=== PATIENT | male | born 1970 | race Caucasian/White ===

== ENCOUNTER 2022-08-10 00:19 | Inpatient (IN) | payer MEDICAID ==
[~2022-08-10] VITALS: Ht 182.9 cm; Wt 98.9 kg
[2022-08-10 00:31] VITALS: BP 125/80
--- NOTE | 2022-08-10 00:34 | NUR ---
PT AMBULATED TO BED 11
--- NOTE | 2022-08-10 01:12 | NUR ---
DR. HUIZAR AT BEDSIDE
[2022-08-10] MEDS ORDERED: VANCOMYCIN 1,000 MG in DEXTROSE 5% 250 ML IV ONE (02:50)
[2022-08-10] MEDS ORDERED: NACL 0.9% 1,000 ML IV SCH (02:50)
[2022-08-10] MEDS ORDERED: cefTRIAXone 1,000 MG in DEXT 5% MINI-BAG PLUS 50 ML IV ONE (02:50)
--- NOTE | 2022-08-10 02:50 | NUR ---
DR. HUIZAR DECIDES TO ADMIT. PT UPDATED ON POC WITH FULL RETURNED VERBAL UNDERSTANDING.
[2022-08-10] MEDS ORDERED: MORPHINE SULFATE 4 MG/ML SYR IVP ONE (02:55)
[2022-08-10 03:15] LABS: BASOPHILS # (AUTO) 0.1 K/uL (0.00-0.22); BASOPHILS % (AUTO) 0.8 % (0.0-2.0); EOSINOPHILS # (AUTO) 0.4 K/uL (0-0.4); EOSINOPHILS % (AUTO) 2.9 % (0.0-4.0); HEMATOCRIT 34.5 % (36-52); HEMOGLOBIN 10.9 g/dL (12.0-18.0); LYMPHOCYTES # (AUTO) 1.4 K/uL (2.0-11.5); LYMPHOCYTES % (AUTO) 10.7 % (20.5-51.1); MEAN CORPUSCULAR HEMOGLOBIN 24 pg (27-31); MEAN CORPUSCULAR HGB CONC 32 g/dL (33-37); MEAN CORPUSCULAR VOLUME 75.8 fL (80-94); MONOCYTES # (AUTO) 0.6 K/uL (0.8-1.0); MONOCYTES % (AUTO) 4.4 % (1.7-9.3); NEUTROPHILS # (AUTO) 10.6 K/uL (1.8-7.7); NEUTROPHILS % (AUTO) 81.2 % (42.2-75.2); PLATELET COUNT (AUTO) 380 K/uL (140-450); RED BLOOD CELL COUNT(AUTO) 4.55 MIL/uL (4.20-6.10); RED CELL DISTRIBUTION WIDTH 18.7 % (11.6-13.7)
[2022-08-10] MEDS ORDERED: cefTRIAXone 1,000 MG VIAL ONE (03:29)
--- NOTE | 2022-08-10 03:30 | NUR ---
PT RESTING, FOLLOWED THROUGH WITH CURRENT ORDERS. PT UPDATED ON POC WITH FULL RETURNED VERBAL UNDERSTANDING. PT IN POSITION OF COMFORT. AWAITING ADMISSION. WILL CONTINUE TO MONITOR.
[2022-08-10 03:42] LABS: ALBUMIN 1.7 g/dL (3.4-5.0); ANION GAP 17.3 (8-16); CREATININE 1.8 mg/dL (0.6-1.3); POTASSIUM 4.3 mmol/L (3.5-5.1); TOTAL BILIRUBIN 1.2 mg/dL (0.0-1.0)
[2022-08-10] MEDS ORDERED: VANCOMYCIN PER PHARMACY MC PRN ×2 (04:15→04:30)
[2022-08-10] MEDS ORDERED: VANCOMYCIN 1,000 MG VIAL ONE (04:19)
[2022-08-10] MEDS ORDERED: VANCOMYCIN 1GM/DEXT 5% PREMIX 200 ML IV SCH (04:45)
[2022-08-10] MEDS ORDERED: SLIDE SUBQ (04:49)
[2022-08-10] MEDS ORDERED: NOVR SUBQ (04:49)
[2022-08-10] MEDS ORDERED: ROSU20TA1 PO (04:49)
--- NOTE | 2022-08-10 04:49 | NUR ---
PT UNABLE TO REMEMBER ALL HOME MEDICATIONS AND DOSES.
[2022-08-10] MEDS ORDERED: ACETAMINOPHEN 325 MG TAB PO PRN (09:15)
[2022-08-10] MEDS ORDERED: NITROGLYCERIN 0.4 MG TAB SL PRN (09:15)
[2022-08-10] MEDS ORDERED: POTASSIUM CHLORIDE 10 MEQ TABER PO PRN ×2 (09:15)
[2022-08-10] MEDS ORDERED: DEXTROSE 50% 50 ML SYR IVP PRN (09:15)
[2022-08-10] MEDS ORDERED: ONDANSETRON 4 MG/2 ML VIAL IVP PRN (09:15)
[2022-08-10] MEDS ORDERED: MAG SULF 2000 MG/WATER PREMIX 50 ML IV PRN ×2 (09:15)
--- NOTE | 2022-08-10 09:26 | NUR ---
MIDODRINE 15MG GIVEN PO X1 WILL CONTINUE TO MONITOR AND ASSESS
[2022-08-10] MEDS ORDERED: FUROSEMIDE 20 MG/2 ML VIAL IVP SCH (09:31)
[2022-08-10] MEDS: HYDROcodone/APAP 7.5/325 MG 1 TAB PO PRN ×3 (10:01→23:59)
[2022-08-10 10:36] LABS: ANION GAP 11.3 (8-16); CARBON DIOXIDE 23.5 mmol/L (21-32); CREATININE 1.6 mg/dL (0.6-1.3); POTASSIUM 3.8 mmol/L (3.5-5.1)
[2022-08-10] MEDS: NACL 0.9% 1,000 ML IV SCH (10:40)
[2022-08-10 10:42] LABS: CHOL/HDL RATIO 3.4 (1-4.5); FREE T4 (FREE THYROXINE) 1.49 ng/dL (0.76-1.46); THYROID STIMULATING HORMONE 3.95 uIU/mL (0.34-3.74)
[2022-08-10] MEDS: INSULIN LISPRO SLIDING SCALE 100 UNITS/ML VIAL SUBQ PRN (11:33)
[2022-08-10] MEDS: BLOOD GLUCOSE MONITORING 1 DEV DEV FS SCH ×3 (11:34→21:28)
[2022-08-10 11:35] LABS: BASOPHILS # (AUTO) 0.1 K/uL (0.00-0.22); BASOPHILS % (AUTO) 0.6 % (0.0-2.0); EOSINOPHILS # (AUTO) 0.2 K/uL (0-0.4); EOSINOPHILS % (AUTO) 1.6 % (0.0-4.0); HEMATOCRIT 30.6 % (36-52); HEMOGLOBIN 9.7 g/dL (12.0-18.0); LYMPHOCYTES # (AUTO) 0.9 K/uL (2.0-11.5); LYMPHOCYTES % (AUTO) 6.2 % (20.5-51.1); MEAN CORPUSCULAR HEMOGLOBIN 24 pg (27-31); MEAN CORPUSCULAR HGB CONC 32 g/dL (33-37); MEAN CORPUSCULAR VOLUME 75.3 fL (80-94); MONOCYTES # (AUTO) 0.7 K/uL (0.8-1.0); MONOCYTES % (AUTO) 5.3 % (1.7-9.3); NEUTROPHILS # (AUTO) 11.8 K/uL (1.8-7.7); NEUTROPHILS % (AUTO) 86.3 % (42.2-75.2); PLATELET COUNT (AUTO) 307 K/uL (140-450); RED BLOOD CELL COUNT(AUTO) 4.06 MIL/uL (4.20-6.10); RED CELL DISTRIBUTION WIDTH 19.1 % (11.6-13.7); WHITE BLOOD COUNT (AUTO) 13.7 K/uL (4.8-10.8)
--- NOTE | 2022-08-10 11:47 | NUR ---
PT TOOK OFF TELEMETRY MONTR AND
--- NOTE | 2022-08-10 11:48 | NUR ---
PT TOOK OFF DELIVERER PHARMACY AND WHEN TRYING TO PLACE BACK ON PT BECAME AGGRESSIVE AND LOUD STATING HES GOING CRAZY AND WHY DOES HE HAVE TO KEEP THE TELE BOX ON PT EDUCATED ON CHF AND MONITORING HEART RATE AND RHYTHM PT UNWILLINGLY ALLOWED RN TO REAPPLY TELE BOX WILL CONTINUE TO MONITOR PT ASSISSTED TO SITTING ON SIDE OF BED WOUND CARE COMPLETED
[2022-08-10 12:00] VITALS: BP 110/75
[2022-08-10] MEDS ORDERED: VANCOMYCIN 500 MG in DEXTROSE 5% 100 ML IV SCH (12:00)
--- NOTE | 2022-08-10 12:37 | NUR ---
WOUND CARE NOTE: RIGHT FOOT S/P TMA WITH PLANTAR WOUND 6X11.5X0.2CM WOUND BED PALE PINK, MOIST, NO ODOR, WOUND EDGE TO 6 O'CLOCK DIRECTION TRACE YELLOW SLOUGH TISSUE, WOUND EDGE ATTACHED AT THIS TIME, NO UNDERMINING. POC DISCUSSED WITH PT. WITH WOUND CARE, PER PT. HE IS UNABLE TO DO HIS OWN WOUND DUE TO S/P LEFT SHOULDER RECONSTRUCTION BONE TO BONE, UNABLE TO MOVE AND PAINFUL TO TOUCH. PER CHARGE NURSE PT. X-RAY WITH OSTEOMYELITIS POC DISCUSSED RECOMMEND SNF PLACEMENT. -CLEANSE RIGHT FOOT WOUND WITH NS, PAT DRY, APPLY THERAHONEY DRESSING SHEET,COVER WITH DRY DRESSING AND WRAP WITH KERLIX ROLL AND SECURED WITH TAPE 2X/WEEK ON WEDNESDAY AND WEDNESDAY AND PRN IF SOILING.
--- NOTE | 2022-08-10 14:18 | NUR ---
PT NON COMPLIANT AND LIT CIGARETTE IN ROOM SECURITY CALLED BELONGINGS CHECKED AND LENS MOUNTER REMOVED BY SECURITY PT MADE AWARE OF THE DANGERS OF SMOKING REMAINS N ON COMPLIANT
--- NOTE | 2022-08-10 15:44 | NUR ---
PATIENT HAS BEEN SCREENED AND CATEGORIZED HIGH NUTRITION RISK. PATIENT WILL BE SEEN WITHIN 1-2 DAYS OF ADMISSION. 08/11/2211/16/[address]
[2022-08-10 16:00] VITALS: BP 128/91
[2022-08-10 20:00] VITALS: BP 134/98
[2022-08-10] MEDS ORDERED: PIPERACILLIN/TAZOBACTAM 3.375 GM VIAL IV ONE (21:11)
[2022-08-10] MEDS: PIPERACILLIN/TAZOBACTAM 3.375 GM in DEXTROSE 5% 50 ML IV SCH (21:16)
[2022-08-10] MEDS: METOPROLOL 25 MG TAB PO SCH (21:17)
[2022-08-10] MEDS: DOCUSATE SODIUM 100 MG GELCAP PO SCH (21:17)
[2022-08-10] MEDS: ATORVASTATIN 20 MG TAB PO SCH (21:17)
--- NOTE | 2022-08-10 21:17 | NUR ---
ALL 2100 SCHEDULED MEDICATIONS ADMINISTERED.
--- NOTE | 2022-08-10 21:29 | NUR ---
BLOOD SUGAR WAS 109 NO INSULIN COVERAGE NEEDED.
[2022-08-11] VITALS: BP 122/87
[2022-08-11 04:00] VITALS: BP 112/68
[2022-08-11] MEDS ORDERED: PIPERACILLIN/TAZOBACTAM 3.375 GM VIAL IV ONE (04:24)
[2022-08-11] MEDS: PIPERACILLIN/TAZOBACTAM 3.375 GM in DEXTROSE 5% 50 ML IV SCH ×3 (04:31→20:31)
[2022-08-11] MEDS: HYDROcodone/APAP 7.5/325 MG 1 TAB PO PRN ×4 (04:32→20:48)
[2022-08-11] MEDS: NACL 0.9% 1,000 ML IV SCH (05:15)
[2022-08-11 06:22] LABS: BASOPHILS # (AUTO) 0.1 K/uL (0.00-0.22); BASOPHILS % (AUTO) 0.8 % (0.0-2.0); EOSINOPHILS # (AUTO) 0.2 K/uL (0-0.4); HEMATOCRIT 31.2 % (36-52); HEMOGLOBIN 9.9 g/dL (12.0-18.0); LYMPHOCYTES # (AUTO) 1.4 K/uL (2.0-11.5); LYMPHOCYTES % (AUTO) 11.3 % (20.5-51.1); MEAN CORPUSCULAR HEMOGLOBIN 24 pg (27-31); MEAN CORPUSCULAR HGB CONC 32 g/dL (33-37); MEAN CORPUSCULAR VOLUME 75.3 fL (80-94); MONOCYTES # (AUTO) 0.9 K/uL (0.8-1.0); MONOCYTES % (AUTO) 7.2 % (1.7-9.3); NEUTROPHILS # (AUTO) 9.7 K/uL (1.8-7.7); NEUTROPHILS % (AUTO) 78.7 % (42.2-75.2); PLATELET COUNT (AUTO) 323 K/uL (140-450); RED BLOOD CELL COUNT(AUTO) 4.14 MIL/uL (4.20-6.10); WHITE BLOOD COUNT (AUTO) 12.3 K/uL (4.8-10.8)
[2022-08-11 07:07] LABS: ANION GAP 15.1 (8-16); CARBON DIOXIDE 20.6 mmol/L (21-32); CREATININE 1.9 mg/dL (0.6-1.3); POTASSIUM 4.7 mmol/L (3.5-5.1)
[2022-08-11 07:13] LABS: MAGNESIUM 1.9 mg/dL (1.8-2.4)
[2022-08-11] MEDS: BLOOD GLUCOSE MONITORING 1 DEV DEV FS SCH ×4 (07:26→21:00)
--- NOTE | 2022-08-11 07:44 | NUR ---
GAVE REPORT TO DAY SHIFT NURSE FOR CONTINUITY OF CARE.
--- NOTE | 2022-08-11 07:45 | NUR ---
RECEIVED PT FROM NIGHT RN, PT IS AWAKE, ALERT AND ORIENTED, ON ROOM AIR, SEATED ON THE BED WITH SIDE RAILS UP AND CALL LIGHT WITHIN REACH, IV LINE NOTED ON THE RIGHT FOREARM G. 20 WITH IVF NS INFUSING AT 50ML/HR, PT HAS A RIGHT FOOT WOUND REINFORCED WITH DRESSING, NO SIGN OF DISTRESS NOTED AND WILL CONTINUE TO MONITOR PT.
[2022-08-11 08:00] VITALS: BP 107/81
[2022-08-11] MEDS: PANTOPRAZOLE 40 MG INJ VIAL IVP SCH (08:45)
[2022-08-11] MEDS: FUROSEMIDE 20 MG/2 ML VIAL IVP SCH (08:45)
[2022-08-11] MEDS: ASPIRIN 81 MG TAB.CHEW PO SCH (08:46)
[2022-08-11] MEDS: DOCUSATE SODIUM 100 MG GELCAP PO SCH ×4 (08:46→21:00)
[2022-08-11] MEDS: lisinopriL 5 MG TAB PO SCH (09:03)
[2022-08-11] MEDS: METOPROLOL 25 MG TAB PO SCH ×2 (09:03→20:33)
[2022-08-11] MEDS ORDERED: VANCOMYCIN 1,500 MG in DEXTROSE 5% 500 ML IV SCH (11:00)
[2022-08-11 12:00] VITALS: BP 109/69
[2022-08-11] MEDS: INSULIN LISPRO SLIDING SCALE 100 UNITS/ML VIAL SUBQ PRN ×3 (12:29→22:22)
--- NOTE | 2022-08-11 12:40 | NUR ---
PT'S IV LINE WAS INFILTRATED NOW.
--- NOTE | 2022-08-11 13:00 | NUR ---
A NEW IV LINE WAS PLACED TO PT NOW.
--- NOTE | 2022-08-11 14:13 | NUR ---
DC PLANNIN YRS OLD MALE PATIENT WAS ADMITTED FROM HOME WITH A DX OF WOUND INFECTION. PATIENT HAS A HX OF DM, CHF, S/P TRANS-METATARSAL AMPUTATION OF THE RIGHT FOOT. XRAY OF RIGHT FOOT SUSPECTED OSTEOMYELITIS. ADMINISTERED IVF, IV ABX ZOSYN AND VANCOMYCIN. DC PLAN POSSIBLE DEBRIDEMENT OF BONE AND BONE BIOPSY VS SNF FOR IV ABX. PATIENT REQUESTING TO GO TO [facility] PAPER WORK TO [facility] TO FOLLOW
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
[2022-08-11 15:48] LABS: APPEARANCE,URINE CLOUDY (CLEAR); BILIRUBIN,URINE 2+ (NEGATIVE); BLOOD, URINE 3+ (NEGATIVE); COLOR,URINE YELLOW (YELLOW); LEUKOCYTE ESTERASE ,URINE NEGATIVE (NEGATIVE); NITRITE, URINE NEGATIVE (NEGATIVE); PH,URINE 5.5 (5.0-9.0); UGLUCOSE TRACE (NEGATIVE)
--- NOTE | 2022-08-11 15:48 | NUR ---
08/11/2022 RD INITIAL ASSESSMENT COMPLETED.PLEASE REFER TO NUTRITION ASSESSMENT UNDER CARE ACTIVITY FOR ESTIMATED NUTRITIONAL NEEDS. [facility] 2.RECOMMEND TITO BID + GLUCERNA TO PROMOTE WOUND HEALING PER RD PROTOCOL 3.MONITOR PO INTAKE 4.MONITOR SKIN INTEGRITY 5.RD TO FOLLOW-UP IN 3-5 DAYS PATIENT IS MODERATE RISK. LESLIE GUSTAFSON, RD
[2022-08-11 16:00] VITALS: BP 93/69
[2022-08-11 16:24] LABS: WBC,URINE 0-5 /HPF (0-5)
[2022-08-11 16:54] LABS: BARBITURATE, URINE NEGATIVE ng/ml (NEG <=200); BENZODIAZEPINE, URINE NEGATIVE ng/mL (NEG <=200); CANNABINOID, URINE NEGATIVE ng/mL (NEG <=50); COCAINE, URINE NEGATIVE ng/mL (NEG <=300); OPIATE, URINE POSITIVE ng/mL (NEG <=2000); PHENCYCLIDINE SCREEN,URINE NEGATIVE ng/mL (NEG <=25)
--- NOTE | 2022-08-11 18:45 | NUR ---
WOUND CARE DRESSING CHANGE WAS DONE NOW.
--- NOTE | 2022-08-11 19:48 | NUR ---
ENDORSED PT TO NIGHT RN FOR CONTINUITY OF CARE, PT IS STABLE AT THIS TIME.
--- NOTE | 2022-08-11 19:49 | NUR ---
RECEIVED REPORT FROM MORNING SHIFT NURSE. PATIENT IN BED SLEEPING. BREATHING NORMAL WITH SYMMETRICAL RISE AND FALL OF THE CHEST. ON ROOM AIR. SAFETY MEASURES IN PLACE. IV ACCESS ON THE RIGHT FOREARM INTACT AND PATENT. CALL LIGHT WITHIN REACH.
[2022-08-11] MEDS: ATORVASTATIN 20 MG TAB PO SCH (20:31)
--- NOTE | 2022-08-11 20:31 | NUR ---
SCHEDULED MEDICATIONS GIVEN ORDERED.
[2022-08-12] VITALS: BP 135/89
[2022-08-12] MEDS: NACL 0.9% 1,000 ML IV SCH ×2 (01:15→21:15)
--- NOTE | 2022-08-12 01:23 | NUR ---
PATIENT SLEEPING. BREATHING NORMAL WITH SYMMETRICAL RISE AND FALL OF THE CHEST. CALL LIGHT WITHIN REACH.
[2022-08-12] MEDS: PIPERACILLIN/TAZOBACTAM 3.375 GM in DEXTROSE 5% 50 ML IV SCH ×3 (04:56→21:49)
[2022-08-12] MEDS: HYDROcodone/APAP 7.5/325 MG 1 TAB PO PRN ×3 (05:53→19:42)
[2022-08-12] MEDS: BLOOD GLUCOSE MONITORING 1 DEV DEV FS SCH ×4 (06:50→20:21)
[2022-08-12] MEDS: INSULIN LISPRO SLIDING SCALE 100 UNITS/ML VIAL SUBQ PRN ×3 (06:51→20:23)
--- NOTE | 2022-08-12 07:23 | NUR ---
GAVE REPORT TO DAY SHIFT NURSE FOR CONTINUITY OF CARE .
[2022-08-12 07:28] LABS: ANION GAP 15.5 (8-16); CARBON DIOXIDE 19.3 mmol/L (21-32); CREATININE 2.4 mg/dL (0.6-1.3); POTASSIUM 4.8 mmol/L (3.5-5.1)
[2022-08-12 07:32] LABS: PHOSPHORUS 4.7 mg/dL (2.5-4.9)
[2022-08-12 07:50] LABS: BASOPHILS # (AUTO) 0.1 K/uL (0.00-0.22); BASOPHILS % (AUTO) 1.2 % (0.0-2.0); EOSINOPHILS # (AUTO) 0.4 K/uL (0-0.4); EOSINOPHILS % (AUTO) 4.7 % (0.0-4.0); HEMATOCRIT 32.9 % (36-52); HEMOGLOBIN 10.3 g/dL (12.0-18.0); LYMPHOCYTES # (AUTO) 1.1 K/uL (2.0-11.5); LYMPHOCYTES % (AUTO) 12.1 % (20.5-51.1); MEAN CORPUSCULAR HEMOGLOBIN 24 pg (27-31); MEAN CORPUSCULAR HGB CONC 31 g/dL (33-37); MEAN CORPUSCULAR VOLUME 76.7 fL (80-94); MONOCYTES # (AUTO) 0.8 K/uL (0.8-1.0); MONOCYTES % (AUTO) 8.5 % (1.7-9.3); NEUTROPHILS # (AUTO) 6.8 K/uL (1.8-7.7); NEUTROPHILS % (AUTO) 73.5 % (42.2-75.2); PLATELET COUNT (AUTO) 349 K/uL (140-450); RED BLOOD CELL COUNT(AUTO) 4.29 MIL/uL (4.20-6.10); RED CELL DISTRIBUTION WIDTH 18.7 % (11.6-13.7); WHITE BLOOD COUNT (AUTO) 9.3 K/uL (4.8-10.8)
[2022-08-12 08:00] VITALS: BP 121/66
[2022-08-12] MEDS: ASPIRIN 81 MG TAB.CHEW PO SCH (09:00)
[2022-08-12] MEDS: lisinopriL 5 MG TAB PO SCH (09:00)
[2022-08-12] MEDS: PANTOPRAZOLE 40 MG INJ VIAL IVP SCH (09:00)
[2022-08-12] MEDS: DOCUSATE SODIUM 100 MG GELCAP PO SCH ×2 (09:00→20:35)
[2022-08-12] MEDS: METOPROLOL 25 MG TAB PO SCH ×2 (09:00→20:35)
[2022-08-12] MEDS: FUROSEMIDE 20 MG/2 ML VIAL IVP SCH (09:00)
[2022-08-12] MEDS ORDERED: VANCOMYCIN 1,000 MG in DEXTROSE 5% 250 ML IV SCH (10:00)
[2022-08-12 16:00] VITALS: BP 119/65
--- NOTE | 2022-08-12 19:12 | NUR ---
PT NON COMPLIANT WITH IV PT KEEPS DISCONNECTING TUBING HIMSELF NOT ALLOWING MEDICATION AND PIGGY BACKS TO FLOW PT MADE AWARE OF RISK AND BENEFITS OF INTERFERING WITH IV AND IV ANTIBIOTIC PT CONTINUES TO BE NON COMPLIANT CARE ENDORSED
--- NOTE | 2022-08-12 19:20 | NUR ---
REPORT RECEIVED FROM DAYSHIFT RNTAE. CARE TAKEN OVER FOR NIGHTSHIFT. PT WITH COMPLAINTS OF PAIN UPON ASSESSMENT. WILL CHECK ON PAIN MEDICATION. WILL CONTINUE TO MONITOR.
[2022-08-12] MEDS: ATORVASTATIN 20 MG TAB PO SCH (20:35)
--- NOTE | 2022-08-12 20:56 | NUR ---
PATIENT IS REFUSING TO HAVE VITAL SIGNS TAKEN.
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
[2022-08-13 04:00] VITALS: BP 114/70
[2022-08-13] MEDS: PIPERACILLIN/TAZOBACTAM 3.375 GM in DEXTROSE 5% 50 ML IV SCH ×3 (05:52→20:29)
[2022-08-13] MEDS: BLOOD GLUCOSE MONITORING 1 DEV DEV FS SCH ×4 (06:41→21:00)
[2022-08-13 07:33] LABS: BASOPHILS % (AUTO) 0.5 % (0.0-2.0); EOSINOPHILS # (AUTO) 0.4 K/uL (0-0.4); EOSINOPHILS % (AUTO) 3.5 % (0.0-4.0); HEMOGLOBIN 9.7 g/dL (12.0-18.0); LYMPHOCYTES # (AUTO) 1.3 K/uL (2.0-11.5); LYMPHOCYTES % (AUTO) 12.6 % (20.5-51.1); MEAN CORPUSCULAR HEMOGLOBIN 24 pg (27-31); MEAN CORPUSCULAR HGB CONC 32 g/dL (33-37); MEAN CORPUSCULAR VOLUME 75.1 fL (80-94); MONOCYTES # (AUTO) 1.1 K/uL (0.8-1.0); MONOCYTES % (AUTO) 10.4 % (1.7-9.3); NEUTROPHILS # (AUTO) 7.4 K/uL (1.8-7.7); PLATELET COUNT (AUTO) 389 K/uL (140-450); RED CELL DISTRIBUTION WIDTH 18.8 % (11.6-13.7); WHITE BLOOD COUNT (AUTO) 10.1 K/uL (4.8-10.8)
[2022-08-13 08:00] LABS: ANION GAP 14.3 (8-16); CARBON DIOXIDE 21.1 mmol/L (21-32); CREATININE 2.9 mg/dL (0.6-1.3); POTASSIUM 5.4 mmol/L (3.5-5.1)
--- NOTE | 2022-08-13 08:00 | NUR ---
PATIENT TRANSPORTED TO OR BY OR STAFF. STABLE AT THIS TIME.
[2022-08-13] MEDS ORDERED: BUPIVACAINE-MPF 0.25% 30 ML VIAL INJ ONE (08:06)
[2022-08-13 08:08] LABS: PHOSPHORUS 5.1 mg/dL (2.5-4.9)
[2022-08-13] MEDS ORDERED: MEROPENEM 1,000 MG in NACL 0.9% 50 ML IV SCH ×2 (08:58→09:05)
[2022-08-13] MEDS: lisinopriL 5 MG TAB PO SCH (09:00)
[2022-08-13] MEDS: DOCUSATE SODIUM 100 MG GELCAP PO SCH ×2 (09:00→20:27)
[2022-08-13] MEDS: PANTOPRAZOLE 40 MG INJ VIAL IVP SCH (09:00)
[2022-08-13] MEDS: ASPIRIN 81 MG TAB.CHEW PO SCH (09:00)
[2022-08-13] MEDS: METOPROLOL 25 MG TAB PO SCH ×2 (09:00→20:28)
[2022-08-13] MEDS: FUROSEMIDE 20 MG/2 ML VIAL IVP SCH (09:00)
[2022-08-13] MEDS ORDERED: SEVOFLURANE 250 ML BTL INH ONE (09:10)
[2022-08-13] MEDS ORDERED: ePHEDrine 50 MG/ML VIAL ONE (09:10)
[2022-08-13] MEDS ORDERED: MIDAZOLAM 2 MG/2 ML VIAL ONE (09:17)
[2022-08-13] MEDS ORDERED: fentaNYL citrate 0.05 MG/ML VIAL ONE (09:18)
[2022-08-13] MEDS ORDERED: ETOMIDATE 20 MG/10 ML VIAL IVP ONE (09:19)
[2022-08-13] MEDS ORDERED: SUCCINYLCHOLINE CHLORIDE 200 MG/10 ML VIAL IVP ONE (09:59)
[2022-08-13] MEDS ORDERED: METOCLOPRAMIDE 10 MG/2 ML INJ VIAL ONE (09:59)
[2022-08-13] MEDS ORDERED: ONDANSETRON 4 MG/2 ML VIAL ONE (09:59)
--- NOTE | 2022-08-13 11:00 | NUR ---
PATIENT BACK FROM OR. ALERT AND ORIENTED X4, NOT IN ANY FORM OF DISTRESS. RIGHT FOOT WITH BANDAGE DRESSING INTACT. DENIES ANY PAIN AT THIS TIME. VITAL SIGNS STABLE. WILL CONTINUE TO MONITOR.
[2022-08-13] MEDS: HYDROcodone/APAP 7.5/325 MG 1 TAB PO PRN ×3 (12:45→23:56)
[2022-08-13] MEDS ORDERED: THERAHONEY WOUND DRESSING TP SCH (13:00)
[2022-08-13 16:00] VITALS: BP 108/82
[2022-08-13] MEDS: NACL 0.9% 1,000 ML IV SCH (17:15)
[2022-08-13] MEDS: INSULIN LISPRO SLIDING SCALE 100 UNITS/ML VIAL SUBQ PRN ×2 (17:28→22:36)
--- NOTE | 2022-08-13 19:05 | NUR ---
RECEIVED REPORT FROM CHERIE HARGROVE. PATIENT IN NO APPARENT PAIN OR DISTRESS. WILL TAKE OVER CARE OF PATIENT AT THIS TIME. WILL CONTINUE TO MONITOR.
[2022-08-13 20:00] VITALS: BP 104/72
[2022-08-13] MEDS: ATORVASTATIN 20 MG TAB PO SCH (20:27)
[2022-08-14] MEDS ORDERED: MEROPENEM 500 MG VIAL IV ONE (03:05)
[2022-08-14 04:00] VITALS: BP 102/65
[2022-08-14] MEDS: HYDROcodone/APAP 7.5/325 MG 1 TAB PO PRN (04:35)
[2022-08-14] MEDS: MEROPENEM 500 MG in NACL 0.9% 50 ML IV SCH ×3 (04:42→21:18)
[2022-08-14 05:37] VITALS: BP 102/65
[2022-08-14] MEDS: BLOOD GLUCOSE MONITORING 1 DEV DEV FS SCH ×4 (07:20→21:39)
[2022-08-14] MEDS: INSULIN LISPRO SLIDING SCALE 100 UNITS/ML VIAL SUBQ PRN ×3 (07:25→21:41)
[2022-08-14 07:35] LABS: BASOPHILS # (AUTO) 0.1 K/uL (0.00-0.22); BASOPHILS % (AUTO) 1.4 % (0.0-2.0); EOSINOPHILS # (AUTO) 0.5 K/uL (0-0.4); EOSINOPHILS % (AUTO) 6.5 % (0.0-4.0); HEMATOCRIT 29.5 % (36-52); HEMOGLOBIN 9.5 g/dL (12.0-18.0); LYMPHOCYTES # (AUTO) 1.2 K/uL (2.0-11.5); LYMPHOCYTES % (AUTO) 15.4 % (20.5-51.1); MEAN CORPUSCULAR HEMOGLOBIN 24 pg (27-31); MEAN CORPUSCULAR HGB CONC 32 g/dL (33-37); MEAN CORPUSCULAR VOLUME 75.7 fL (80-94); MONOCYTES # (AUTO) 0.9 K/uL (0.8-1.0); MONOCYTES % (AUTO) 11.6 % (1.7-9.3); NEUTROPHILS # (AUTO) 4.9 K/uL (1.8-7.7); NEUTROPHILS % (AUTO) 65.1 % (42.2-75.2); PLATELET COUNT (AUTO) 383 K/uL (140-450); RED CELL DISTRIBUTION WIDTH 19.3 % (11.6-13.7); WHITE BLOOD COUNT (AUTO) 7.5 K/uL (4.8-10.8)
[2022-08-14 07:53] LABS: ANION GAP 14.5 (8-16); CARBON DIOXIDE 21.9 mmol/L (21-32); POTASSIUM 5.4 mmol/L (3.5-5.1)
[2022-08-14 08:00] LABS: PHOSPHORUS 5.4 mg/dL (2.5-4.9)
[2022-08-14] MEDS: METOPROLOL 25 MG TAB PO SCH ×2 (09:00→21:22)
[2022-08-14] MEDS: lisinopriL 5 MG TAB PO SCH (09:00)
[2022-08-14] MEDS: FUROSEMIDE 20 MG/2 ML VIAL IVP SCH (09:00)
[2022-08-14] MEDS: PANTOPRAZOLE 40 MG INJ VIAL IVP SCH (09:00)
[2022-08-14] MEDS: ASPIRIN 81 MG TAB.CHEW PO SCH (09:00)
[2022-08-14] MEDS: DOCUSATE SODIUM 100 MG GELCAP PO SCH ×2 (09:00→21:20)
[2022-08-14] MEDS ORDERED: VANCOMYCIN 1,000 MG in DEXTROSE 5% 250 ML IV SCH (10:00)
[2022-08-14] MEDS: NACL 0.9% 1,000 ML IV SCH (13:15)
[2022-08-14 16:04] VITALS: BP 115/71
[2022-08-14] MEDS ORDERED: SODIUM ZIRCONIUM CYCLOSILICATE 10 GM POWD.PACK PO SCH (16:50)
--- NOTE | 2022-08-14 19:20 | NUR ---
RECEIVED REPORT FROM AM NURSE FOR CONTINUITY OF CARE. PT IS ANXIOUS SITTING UP AT SIDE OF BED PULLING AT CATHETER. EXPLAINED PURPOSE OF JAVIER CATHETER AND REPOSITIONED PT IN BED WITH 2 PERSON ASSIST. PT ON RM AIR/O2 WITH NO ACUTE DISTRESS. RR EVEN AND UNLABORED WITH SYMMETRICAL CHEST RISE. ELEVATED R FOOT ON PILLOW. PT IS STABLE.A&OX4. DENIES PAIN AT THIS TIME. GI IS INTACT. PT'S SKIN R FOOT OPEN WOUND DRESSING D&I. PT IS ON BEDREST AND CONTINENT. ALL SAFETY MEASURES IN PLACE. BED IN LOW AND LOCKED POSITION. CALL LIGHT WITHIN REACH.
[2022-08-14] MEDS: ATORVASTATIN 20 MG TAB PO SCH (21:21)
--- NOTE | 2022-08-14 22:00 | NUR ---
COLLECTED URINE FOR RANDOM SODIUM AND RANDOM POTASSIUM AND SENT SPECIMEN TO LAB.
[2022-08-15] VITALS: BP 128/87
--- NOTE | 2022-08-15 04:00 | NUR ---
EMPTIED JAVIER CATHETER OF 1250CC DARK MARCELA URINE WITH MUCUS THREADS AND ONE SMALL BLOOD CLOT. PT TOLERATING ABX WELL.
[2022-08-15] MEDS: MEROPENEM 500 MG in NACL 0.9% 50 ML IV SCH ×3 (05:03→20:36)
--- NOTE | 2022-08-15 05:48 | NUR ---
PT REFUSED REPOSITIONING AND ANDREW CARE AT THIS TIME. JAVIER CATHETER DRAINING CLEAR DARK MARCELA URINE. DENIES PAIN. CALL LIGHT WITHIN REACH. WILL CONTINUE TO MONITOR.
[2022-08-15] MEDS: BLOOD GLUCOSE MONITORING 1 DEV DEV FS SCH ×4 (06:14→20:36)
[2022-08-15] MEDS: INSULIN LISPRO SLIDING SCALE 100 UNITS/ML VIAL SUBQ PRN ×4 (06:16→20:42)
--- NOTE | 2022-08-15 07:05 | NUR ---
ENDORSED REPORT TO AM NURSE RODRI RN FOR CONTINUITY OF CARE. PT IS STABLE. ALL NEEDS MET THROUGHOUT THE SHIFT.
[2022-08-15 07:36] LABS: ANION GAP 17.2 (8-16); CARBON DIOXIDE 18.8 mmol/L (21-32); CREATININE 2.9 mg/dL (0.6-1.3)
[2022-08-15 07:41] LABS: MAGNESIUM 2.2 mg/dL (1.8-2.4); PHOSPHORUS 4.8 mg/dL (2.5-4.9)
[2022-08-15 07:43] LABS: BASOPHILS # (AUTO) 0.1 K/uL (0.00-0.22); BASOPHILS % (AUTO) 0.9 % (0.0-2.0); EOSINOPHILS # (AUTO) 0.3 K/uL (0-0.4); EOSINOPHILS % (AUTO) 3.9 % (0.0-4.0); HEMATOCRIT 29.6 % (36-52); HEMOGLOBIN 9.6 g/dL (12.0-18.0); LYMPHOCYTES # (AUTO) 1.3 K/uL (2.0-11.5); LYMPHOCYTES % (AUTO) 16.2 % (20.5-51.1); MEAN CORPUSCULAR HEMOGLOBIN 24 pg (27-31); MEAN CORPUSCULAR HGB CONC 33 g/dL (33-37); MEAN CORPUSCULAR VOLUME 73.6 fL (80-94); MONOCYTES # (AUTO) 0.7 K/uL (0.8-1.0); MONOCYTES % (AUTO) 8.9 % (1.7-9.3); NEUTROPHILS # (AUTO) 5.8 K/uL (1.8-7.7); NEUTROPHILS % (AUTO) 70.1 % (42.2-75.2); PLATELET COUNT (AUTO) 469 K/uL (140-450); RED BLOOD CELL COUNT(AUTO) 4.01 MIL/uL (4.20-6.10); RED CELL DISTRIBUTION WIDTH 19.4 % (11.6-13.7); WHITE BLOOD COUNT (AUTO) 8.3 K/uL (4.8-10.8)
[2022-08-15 08:00] VITALS: BP 132/89
[2022-08-15] MEDS: NACL 0.9% 1,000 ML IV SCH (09:15)
[2022-08-15] MEDS: ASPIRIN 81 MG TAB.CHEW PO SCH (09:15)
[2022-08-15] MEDS: SODIUM ZIRCONIUM CYCLOSILICATE 10 GM POWD.PACK PO SCH ×2 (09:15→20:38)
[2022-08-15] MEDS: METOPROLOL 25 MG TAB PO SCH ×2 (09:15→20:39)
[2022-08-15] MEDS: DOCUSATE SODIUM 100 MG GELCAP PO SCH ×2 (09:15→20:38)
[2022-08-15] MEDS: PANTOPRAZOLE 40 MG INJ VIAL IVP SCH (10:05)
[2022-08-15 13:26] LABS: POTASSIUM,URINE RANDOM 37 mmol/L (12-75); URINE SODIUM, RANDOM 22 mmol/l (40-220)
[2022-08-15 16:00] VITALS: BP 120/80
--- NOTE | 2022-08-15 19:25 | NUR ---
RECEIVED REPORT FROM JIM HARGROVE FOR CONTINUITY OF CARE. PT IS STABLE IN BED. A&OX4 WATCHING TV. DENIES PAIN. ON RM AIR/O2 WITH NO ACUTE DISTRESS. RR EVEN AND UNLABORED WITH EQUAL CHEST RISE. GI INTACT. PT'S SKIN R FOOT WOUND DRESSING D&I. R FOOT ELEVATED ON A PILLOW. PT BAS BEEN IN BED ALL DAY PER REPORT. JAVIER CATHETER DRAINING CLEAR DARK MARCELA URINE. ALL SAFETY MEASURES IN PLACE. BED IN LOW AND LOCKED POSITION. CALL LIGHT WITHIN REACH.
[2022-08-15] MEDS: ATORVASTATIN 20 MG TAB PO SCH (20:38)
[2022-08-15] MEDS: HYDROcodone/APAP 7.5/325 MG 1 TAB PO PRN (21:03)
--- NOTE | 2022-08-15 21:05 | NUR ---
PT TOOK HIS HS MEDS WITHOUT DIFFICULTY. C/O 10/10 L SHOULDER AND LEG PAIN. RECEIVED NORCO 7.5/325MG 1 TAB PO AT 2102.
--- NOTE | 2022-08-15 21:33 | NUR ---
REASSESSED. PT'S PAIN LEVEL NOW A ZERO. HS SNACK GIVEN. YM=088 COVERED WITH 2 UNITS HUMALOG INSULIN PER SLIDING SCALE.
[2022-08-15 22:23] LABS: URINE TOTAL PROTEIN 101.2 mg/dL (0-12)
[2022-08-15] MEDS ORDERED: MELATONIN 3 MG TAB PO PRN (22:55)
--- NOTE | 2022-08-15 23:10 | NUR ---
PT AWAKE AND YELLING. HIGHLY ANXIOUS. SENT TEXT TO DR. GORDON. NEW ORDERS RECEIVED AND CARRIED OUT. ATIVAN 2MG IVP GIVEN FOR ANXIETY AND RESTLESSNESS. REPOSITIONED. INCONTINENT OF MODERATE FORMED BM. PT RELUCTANT TO TURN ON HIS LEFT SIDE . DUE TO LEFT SHOULDER IMMOBILITY AND PAIN. JAVIER CATHETER DRAINED 750 CC CLEAR DARK MARCELA URINE. WILL CONTINUE TO MONITOR.
[2022-08-15] MEDS: LORazepam 2 MG/ML VIAL IM/IVP PRN (23:11)
[2022-08-16] VITALS: BP 119/80
--- NOTE | 2022-08-16 00:30 | NUR ---
PT AWOKE YELLING FOUND STANDING AT BEDSIDE NAKED, IV 20G L HAND PULLED OUT; AND JAVIER CATHETER PULLED ACROSS LINEN. ALSO HAD A BM. PATIENT HAD COMPLETELY STRIPPED THE BED. HE WAS BLEEDING FROM L HAND IV SITE. PT STATED "I WAS DREAMING. I WOKE UP AND DID NOT RECOGNIZE WHERE I WAS AT FIRST." COMPLETE LINEN CHANGE AND PARTIAL SPONGE BATH DONE. PUT ON NEW GOWN. PT TRANSFERRED SLOWLY WITH STANDBY ASSIST FROM CHAIR TO BED. ONCE IN BED BOTH LEGS ELEVATED ON PILLOWS. R FOOT STUMP DRESSING REMAINS D&I. ALL SAFETY MEASURES IN PLACE. NEW IV PLACED BY DELVIN LINK 20G IN RFA, INFUSING NS@50CC/HR. CALL LIGHT WITHIN REACH. WILL CONTINUE TO MONITOR.
[2022-08-16] MEDS: MEROPENEM 500 MG in NACL 0.9% 50 ML IV SCH ×3 (04:16→21:15)
[2022-08-16] MEDS: NACL 0.9% 1,000 ML IV SCH (05:15)
[2022-08-16] MEDS: BLOOD GLUCOSE MONITORING 1 DEV DEV FS SCH ×4 (06:17→21:00)
--- NOTE | 2022-08-16 06:30 | NUR ---
YV=913 NO INSULIN COVERAGE NEEDED. PT YELLING. PT REPOSITIONED AND ANDREW CARE DONE. ICE CHIPS GIVEN . PT REFUSED AM LAB DRAW REPORTED BY HOSPITAL EDUCATOR Yessica
--- NOTE | 2022-08-16 07:30 | NUR ---
ENDORSED REPORT TO DAY SHIFT RN MATIAS FOR CONTINUITY OF CARE. PT IS STABLE. ALL NEEDS MET THROUGHOUT THE SHIFT.
[2022-08-16 08:00] VITALS: BP 136/82
[2022-08-16] MEDS: SODIUM ZIRCONIUM CYCLOSILICATE 10 GM POWD.PACK PO SCH ×2 (09:27→21:17)
[2022-08-16] MEDS: ASPIRIN 81 MG TAB.CHEW PO SCH (09:30)
[2022-08-16] MEDS: METOPROLOL 25 MG TAB PO SCH ×2 (09:31→21:00)
[2022-08-16] MEDS: DOCUSATE SODIUM 100 MG GELCAP PO SCH ×2 (09:31→21:15)
[2022-08-16] MEDS: PANTOPRAZOLE 40 MG INJ VIAL IVP SCH (09:33)
[2022-08-16] MEDS: LORazepam 2 MG/ML VIAL IM/IVP PRN ×2 (10:13→15:08)
[2022-08-16 16:00] VITALS: BP 138/96
[2022-08-16] MEDS: INSULIN LISPRO SLIDING SCALE 100 UNITS/ML VIAL SUBQ PRN (17:15)
--- NOTE | 2022-08-16 18:06 | NUR ---
08/16/22 RD FOLLOW UP COMPLETED.PLEASE REFER TO NUTRITION ASSESSMENT UNDER CARE ACTIVITY FOR ESTIMATED NUTRITIONAL NEEDS. 1.CONTINUE WITH CCHO AND RENAL DIET 2.MONITOR PO INTAKE 3.MONITOR SKIN INTEGRITY 4.RD TO FOLLOW-UP IN 5-7 DAYS PATIENT IS LOW RISK. LESLIE GUSTAFSON, GAGE
--- NOTE | 2022-08-16 19:45 | NUR ---
ENDORSE PATIENT TO PM SHIFT NURSE WHILE PATIENT REST ON BED. JAVIER 16FR DRAINING, PIV SALINE LOCK.
--- NOTE | 2022-08-16 21:00 | NUR ---
PATIENT REFUSED ACCUCK, COERING NURSE LESLIE HARGROVE WITNESS PATIENT TELLING NURSE TO GET THE "FUCK OUT". [email or web address]
[2022-08-16] MEDS: ATORVASTATIN 20 MG TAB PO SCH (21:17)
--- NOTE | 2022-08-16 21:35 | NUR ---
RECEIVED REPORT FROM LESLIE HARGROVE. PATIENT WAS SEVERELY AGITATED AND VERBALLY/PHYSICALLY AGGRESSIVE. PATIENT IN ROOM WITH JAVIER CATH. DRAINAGE NOTED STRAW COLOR AND CLEAR. PATIENT HAS REFUSED BLOOD SUGAR, VITAL SIGNS, AND WOUND CARE. MD WILL BE NOTIFIED. PATIENT HAS POURED WATER ALL OVER THE FLOOR, NURSING CLEANED IT TO PREVENT FALL. AWAITING MD FOR ORDERS. [email or web address]
--- NOTE | 2022-08-16 22:40 | NUR ---
BED ALARM WENT OFF NURSING NOTED PATIENT OUT OF BED NAKED AND WALKING WITH JAVIER INTACT. NURSING ATTEMPTED TO ASSIST PATIENT TO THE RESTROOM, BUT HE BECAME VERBALLY AGGRESSIVE AND SHOOED NURSE TO GO AWAY. NURSING REPORTED BEHAVIOR TO MD AND RESOURCE NURSE. PATIENT IS CALLING OUT FOR HIS "MAMA". [email or web address]
--- NOTE | 2022-08-17 00:15 | NUR ---
WAS NOTIFIED THAT NEW ORDERS WERE REFUSED AND PATIENT IS NON COMPLIANT TO EVERYTHING. REFUSED HIS MEDICATION, ACCUCHECK, AND PRN FOR HIS AGITATION. PATIENT IS SUSPICIOUS WE ARE NOT GIVING HIM THE MEDICATION WE STATED WE WILL GIVE. [email or web address]
--- NOTE | 2022-08-17 00:20 | NUR ---
SECURITY AND RT STOOD AVAILABLE AND PATIENT ALLOWED IM TO BE GIVEN. NO NOTED ADVERSE REACTION NOTED AT THIS TIME. NURSING WILL MONITOR FOR EFFECTS OF THE MEDICATION. [email or web address]
[2022-08-17] MEDS ORDERED: QUEtiapine FUMARATE 25 MG TAB PO ONE (00:25)
[2022-08-17] MEDS: NACL 0.9% 1,000 ML IV SCH (01:15)
--- NOTE | 2022-08-17 01:29 | NUR ---
AFTER ATIVAN HAS SUN1MPOC DOWN PATIENT AGITATION AND SUSPICION OF NURSES TRYING TO POISON HIM, ACCUCHECK WAS COMPLETED, VITAL SIGNS TAKEN, AND PRN MEDICATION WAS GIVEN. BLOOD SUGAR WAS 158 2 UNITS OF HUMALOG GIVEN AND WITNESS BY LESLIE [id number]. VITAL SIGNS NOTED AT 98.2 90 180/113 (PATIENT WOULD NOT SIT STILL AND THIS WAS ON HIS LEFT LEG). 17 UNLABORED. AWAITING MD TO CALL FOR STAT PSYCH CONSULT. [email or web address]
--- NOTE | 2022-08-17 02:54 | NUR ---
PATIENT IN BED ASLEEP. NO NOTED S/S OF RESPIRATORY DISTRESS. PATIENT WAS LAYING IN BED IN HIGH [place]. SIDE RAIL X 2 FOR SAFETY AND SELF ADJUSTMENTS. JAVIER INTACT DRAINAGE NOTED AMBERISH YELLOW CLEAR. CALL LIGHT WAS WITHIN REACH FOR ASSISTANCE. NO CONSULT AT THIS TIME FOR PSYCH. [email or web address]
[2022-08-17 04:00] VITALS: BP 131/67
--- NOTE | 2022-08-17 04:55 | NUR ---
PATIENT WAS NOTED ASLEEP. EMPTY JAVIER WITH OVER 1750 MLS OF URINE. PATIENT WAS LEFT TO SLEEP AND REST FOR TOMORROW. PATIENT WAS ABLE TO SLEEP DURING THE NIGHT WITHOUT DISTURBANCE. SIDE RAILS UP X 2 CALL LIGHT WITHIN RANGE. [email or web address]
[2022-08-17] MEDS: MEROPENEM 500 MG in NACL 0.9% 50 ML IV SCH ×3 (05:05→21:00)
--- NOTE | 2022-08-17 05:06 | NUR ---
MEDICATIONS NOT ADMINISTERED, NO IV ACCESS, PATIENT IS NON COMPLIANT
--- NOTE | 2022-08-17 05:06 | NUR ---
RN UNABLE TO GIVE IV MEDICATION BECAUSE NO IV ACCESS. [email or web address]
[2022-08-17] MEDS: BLOOD GLUCOSE MONITORING 1 DEV DEV FS SCH ×4 (06:56→21:15)
--- NOTE | 2022-08-17 07:13 | NUR ---
ENDORSED PATIENT TO MARCO HARGROVE FOR CONTINUITY OF CARE. PATIENT WAS STABLE DURING SHIFT REPORT. [email or web address]
[2022-08-17 07:39] LABS: CARBON DIOXIDE 21.7 mmol/L (21-32); CREATININE 2.5 mg/dL (0.6-1.3); POTASSIUM 4.7 mmol/L (3.5-5.1)
--- NOTE | 2022-08-17 07:47 | NUR ---
GOT REPORT FROM THE NIGHT NURSE , PT AWAKE PULLED IV OUT SITTING AT THE BED ASKING FOR BLANKET AND ICE CHIPS.[id number]
[2022-08-17 08:00] VITALS: BP 132/89
[2022-08-17] MEDS: DOCUSATE SODIUM 100 MG GELCAP PO SCH ×2 (08:53→21:22)
[2022-08-17] MEDS: METOPROLOL 25 MG TAB PO SCH ×2 (08:53→21:00)
[2022-08-17] MEDS: QUEtiapine FUMARATE 25 MG TAB PO SCH ×2 (08:54→21:22)
[2022-08-17] MEDS: ASPIRIN 81 MG TAB.CHEW PO SCH (08:54)
[2022-08-17] MEDS: PANTOPRAZOLE 40 MG INJ VIAL IVP SCH (08:54)
[2022-08-17] MEDS: FUROSEMIDE 20 MG/2 ML VIAL IVP SCH (09:00)
[2022-08-17] MEDS ORDERED: VANCOMYCIN 1,000 MG in DEXTROSE 5% 250 ML IV SCH (09:00)
[2022-08-17] MEDS ORDERED: ALGINATE ROPE MC PRN (11:15)
--- NOTE | 2022-08-17 11:23 | NUR ---
WOUND CARE RE-EVALUATION NOTE: RIGHT FOOT S/P TMA WITH PLANTAR WOUND 5.5X11X0.2CM WOUND BED PALE PINK, MODERATE AMOUNT SEROUS DRAINAGE WITH MILD ODOR, WOUND EDGE TO 6 O'CLOCK DIRECTION TRACE YELLOW SLOUGH TISSUE WAS RESOLVED, WITH A TUNNEL WOUND 3 CM DEEP, WOUND EDGE ATTACHED AT THIS TIME. POC DISCUSSED WITH PRIMARY LATHE WINDER DRESSING CHANGED. CLEANSE RIGHT FOOT WOUND WITH NS, PAT DRY, PACK WOUND FROM TUNNEL WOUND TO WOUND BED, COVER WITH DRY DRESSING, WRAP WITH KERLIX ROLL 2X/WEEK ON WEDNESDAY AND WEDNESDAY AND PRN IF SOILING
--- NOTE | 2022-08-17 13:09 | NUR ---
TRIED TO START IV ON PATIENT PT PULLED OLD IV OUT. WHILE IS WAS TRYING TO PUT IN PT SWING AND SAYS GET F OUT OF HERE DO NOT TOUCH ME. THE MEDICAL STUDENT DR BESIDE THE BED PT SEEMS VERY ABUSIVE DO NOT WANT TO BE BOTHERED. DRESSING CHANGE DONE BY WOUND NURSE WHILE PT TRY TO MOVE AWAY THAT I HAVE TO SECURE THE LEG FOR WOUND NURSE TO FINISH THE DRESSING. PT VERY MUCH NON COMPLIANT.[id number]
--- NOTE | 2022-08-17 13:38 | NUR ---
ALL IV MED IS NOT GIVEN C\O NO LINE, NOW WAITING IN PICC LINE.
--- NOTE | 2022-08-17 13:52 | NUR ---
PT REFUSED THE BLOOD DRAW DR TAM [id number]
--- NOTE | 2022-08-17 14:32 | NUR ---
PT REFUSED TO MICHAEL THE CONSENT FOR PICC LINE.[email or web address]
--- NOTE | 2022-08-17 15:51 | NUR ---
PT REFUSED TO HAVE BP PUSHING AWAY. TRIED 3X NO SUCCESS.[email or web address]
--- NOTE | 2022-08-17 17:39 | NUR ---
PT REFUSED BLOOD SUGAR TEST SAYING CURSE WORD, AND GIVING THE MIDDLE FINGER, TRIED TO TALK TO THE PATIENT THAT IF HE REFUSE ALL THE TREATMENT THAT HIS CHANCE IS TO FROM THE INFECTION BUT PATIENT SAYS " I DON'T CARE. [id number]
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
--- NOTE | 2022-08-17 19:25 | NUR ---
PATIENT WAS ENDORSED BACK FOR CONTINUITY OF CARE FROM MARCO RN, PATIENT WAS NOTED IN BED HALF DRESSED IN BED SPITTING MUCUS ON THE SANTANA, IN HIS BED, ALL OVER HIMSELF, AND HAS MESSED UP THE ENTIRE ROOM WITH WATER AND FOOD. PATIENT IS VERY AGITATED. DENIES ANY PAIN AT THIS TIME. PATIENT CONTINUES TO ASK FOR BLANKETS AND DRINKS. NURSING GAVE WITHOUT INCIDENT. PATIENT WAS COMPLIANT FOR BLOOD SUGAR AND VITAL SIGNS EXCEPT BLOOD PRESSURE. NO NOTED SIGNS AND SYMPTOMS OF PAIN. NO NOTED RESPIRATORY DISTRESS. SIDE RAILS UP X 2 CALL LIGHT WITHIN REACH AND PATIENT IS AWARE OF HOW TO USE THE CALL LIGHT. [email or web address] .
--- NOTE | 2022-08-17 20:00 | NUR ---
Patient's Plan of Care was discussed and reviewed with ADA: KELVIN
--- NOTE | 2022-08-17 20:40 | NUR ---
CALLED TELE PSYCH AND LEFT A MESSAGE TO HAVE A CONSULT SINCE YESTERDAY BY DR RON. AWAITING A CALL BACK FOR CONSULTATION. [email or web address]
[2022-08-17] MEDS: LORazepam 2 MG/ML VIAL IM/IVP PRN (21:21)
[2022-08-17] MEDS: ATORVASTATIN 20 MG TAB PO SCH (21:28)
--- NOTE | 2022-08-17 22:37 | NUR ---
PATIENT SON CALLED TO HAVE AN UPDATE ON PATIENT CONDITION DECLINING AND THE NEED TO GET PATIENT TO COMPLY. CAITLYN (PATIENT'S SON) WILL COME TO THIS FACILITY IN [place] TO SPEAK WITH MD ON HIS CONDITION. NURSING WILL ADVISE AM SHIFT OF THE SON COMING TO VISIT AND ASSIST IN HIS CARE. [email or web address]
--- NOTE | 2022-08-17 23:59 | NUR ---
CALLED TELEPSYCH WITH THE CORRECT NUMBER AND DR MAGDALENO WILL CALL US BACK FOR PSYCH CONSULT. CORRECT NUMBER IS IN THE NURSE'S STATION AT [phone]. NURSING WILL AWAITING THE CALL BACK. [email or web address]
--- NOTE | 2022-08-18 01:31 | NUR ---
DR MAGDALENO WILL CALL ON THE IPAD AT 0630 FOR PSYCH EVALUATION. PATIENT WAS WILL FOR NURSING TO WASH HIM AND CHANGE HIS LINEN. SIDE RAILS UP X 2 FOR SAFETY AND ADJUSTMENT. CALL LIGHT WITHIN REACH. [email or web address]
[2022-08-18 04:00] VITALS: BP_SYST 132; BP_SYST 140; BP_DIAS 83; BP_DIAS 89
--- NOTE | 2022-08-18 04:38 | NUR ---
PATIENT HAS REMOVED ALL BANDAGES FROM FOOT DRESSING, THROWN HIS ITEMS ON THE FLOOR, AND CONTINUES TO YELLING BELLIGERENTLY TOWARDS STAFF. PATIENT REFUSED TO SIT IN THE BED TO HAVE DRESSING CHANGED. PATIENT WANTS TO ARGUE VERBALLY AND DENIES ASSISTANCE. BED ROOM DOOR IS CLOSED BECAUSE PATIENT IS NAKED FROM THE WAIST BELOW, REFUSES TO HAVE ASSISTANCE FOR HIS PANTS ON OR WEAR A HOSPITAL GOWN TO COVE HIS PRIVATE AREA. NURSING WILL FREQUENT THE ROOM FOR ANTICIPATED ASSISTANCE AND/OR COMPLIANCE TO CARE. [email or web address]
[2022-08-18] MEDS: MEROPENEM 500 MG in NACL 0.9% 50 ML IV SCH (04:51)
[2022-08-18] MEDS: BLOOD GLUCOSE MONITORING 1 DEV DEV FS SCH ×2 (06:53→11:30)
--- NOTE | 2022-08-18 07:30 | NUR ---
RECEIVED PT FROM NUCLEAR CARDIOLOGY TECHNOLOGIST NURSE KELVIN. PT AWAKE, SITTING AT BEDSIDE CHAIR. RESPIRATIONS EVEN AND UNLABORED ON RA. NO DISTRESS NOTED. PT FOR TELE SYCHE CONSULT. DR MAGDALENO BEING CONTACTED. AWAITING FOR CALL TO BE PICKED UP BY DR LORENZO.
--- NOTE | 2022-08-18 07:35 | NUR ---
TELEPSYCHE CONSULT WITH DR MAGDALENO ONGOING.
--- NOTE | 2022-08-18 07:54 | NUR ---
Patient's Plan of Care was discussed and reviewed with PERSONNEL AND PAYROLL TECHNICIAN:
[2022-08-18 08:00] VITALS: BP 132/85
[2022-08-18] MEDS: DOCUSATE SODIUM 100 MG GELCAP PO SCH ×2 (09:00→09:36)
[2022-08-18] MEDS: PANTOPRAZOLE 40 MG INJ VIAL IVP SCH (09:00)
[2022-08-18] MEDS: QUEtiapine FUMARATE 25 MG TAB PO SCH ×2 (09:00→09:37)
[2022-08-18] MEDS: FUROSEMIDE 20 MG/2 ML VIAL IVP SCH (09:00)
[2022-08-18] MEDS: METOPROLOL 25 MG TAB PO SCH (09:37)
[2022-08-18] MEDS: ASPIRIN 81 MG TAB.CHEW PO SCH (09:38)
--- NOTE | 2022-08-18 10:04 | NUR ---
ADMINISTERED SCHEDULED MEDS. PT REFUSED COLACE AND SEROQUEL. RISKS AND BENEFITS EXPLAINED BUT PT STILL REFUSED. NON-ADMIT IV MEDS. PT NO IV LINE. THERE WAS AN ORDER FOR PICC LINE BUT PT REFUSES TO HAVE IT, RISKS AND BENEFITS EXPLAINED BUT STILL REFUSES.
--- NOTE | 2022-08-18 10:50 | NUR ---
PT FOUND AT THE [address]. PT WAS NON-COMPLIANT, AGGRESSIVE AND WANTED TO GO HOME. CALLED SECURITY FOR ASSISTANCE AND HAD PT GO BACK TO ROOM. SON, CAITLYN AND DR RON WERE INFORMED.
--- NOTE | 2022-08-18 11:06 | NUR ---
DR RON CAME IN AND SPOKE TO PT AT BEDSIDE.
--- NOTE | 2022-08-18 11:25 | NUR ---
DR ABREU IN MST UNIT. PER DR ABREU OK TO REMOVE JAVIER CATHETER IF PT GOES AMA.
--- NOTE | 2022-08-18 11:45 | NUR ---
PT REFUSED BS CHECK. RISKS AND BENEFITS EXPLAINED BUT PT STILL REFUSED.
--- NOTE | 2022-08-18 12:10 | NUR ---
PT LEAVE HOSPITAL AMA. RISKS AND BENEFITS WERE EXPLAINED. DR RON, [facility], SON WERE MADE AWARE. JAVIER CATHETER TIP REMOVED. REFUSED WOUND CARE. ALL BELONGINGS TAKEN UPON DC. PT IS STABLE. UBER SET UP BY HOUSE SUP. PT WAS WHEELED OUT TO FRONT LOBBY BY NURSE.
[2022-08-20] MEDS ORDERED: ALGINATE ROPE MC SCH (13:00)
== END 2022-08-18 12:10 | disposition left against medical advice (07) | DRG 710 ==
LOC: MED 00:19 → MTU 04:17 → MED 04:17 → MTU 10:15
PROC: 0Y6M0ZF Detachment at Right Foot, Partial 5th Ray, Open Approach (ICD-10-PCS; 2022-08-13)
PROC: 0Y6M0ZD Detachment at Right Foot, Partial 4th Ray, Open Approach (ICD-10-PCS; principal; 2022-08-13 08:00)
DX: A41.9 Sepsis, unspecified organism (principal); N17.0 Acute kidney failure with tubular necrosis; I50.23 Acute on chronic systolic (congestive) heart failure; E43 Unspecified severe protein-calorie malnutrition; E11.40 Type 2 diabetes mellitus with diabetic neuropathy, unspecified; E87.1 Hypo-osmolality and hyponatremia; E83.51 Hypocalcemia; T87.43 Infection of amputation stump, right lower extremity; E86.0 Dehydration; D64.9 Anemia, unspecified; E11.51 Type 2 diabetes mellitus with diabetic peripheral angiopathy without gangrene; M86.8X7 Other osteomyelitis, ankle and foot; L97.519 Non-pressure chronic ulcer of other part of right foot with unspecified severity; Y83.5 Amputation of limb(s) as the cause of abnormal reaction of the patient, or of later complication, without mention of misadventure at the time of the procedure; M19.012 Primary osteoarthritis, left shoulder; E11.621 Type 2 diabetes mellitus with foot ulcer; E87.8 Other disorders of electrolyte and fluid balance, not elsewhere classified; E87.5 Hyperkalemia; E11.69 Type 2 diabetes mellitus with other specified complication; L08.9 Local infection of the skin and subcutaneous tissue, unspecified; I11.0 Hypertensive heart disease with heart failure; Z20.822 Contact with and (suspected) exposure to COVID-19; F15.10 Other stimulant abuse, uncomplicated; Z88.2 Allergy status to sulfonamides; Z88.8 Allergy status to other drugs, medicaments and biological substances; Z79.899 Other long term (current) drug therapy; Z79.4 Long term (current) use of insulin; Z68.29 Body mass index [BMI] 29.0-29.9, adult; Z59.00 Homelessness unspecified
CPT/HCPCS: 36415; 71045; 72110; 73030; 73630; 73700; 76705; 76770; 80048; 80053; 80202; 80305; 81001; 82140; 82150; 82550; 82570; 82948; 83036; 83605; 83690; 83735; 83880; 83935; 84100; 84133; 84300; 84439; 84443; 84484; 85025; 85610; 85730; 87040; 87070; 87075; 87081; 87186; 87205; 88305; 88311; 93005; 93925; 93970; 96365; 96367; 96375; 99285; C9113; J0330; J0696; J1644; J1815; J1940; J2060; J2185; J2250; J2270; J2405; J2543; J2765; J3010; J3370; J3490; J7060; Q0092